=== PATIENT | female | born 2005 | race Caucasian/White ===

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

== ENCOUNTER 2024-03-28 08:07 | Day surgery (SDC) | payer OTHER, SELFPAY ==
[2024-03-28] VITALS (12 sets, daily range): BP systolic 107–128; BP diastolic 65–83; PULSE 57–83; RESP 6–20; TEMP 36.6–36.8; O2SAT 97–100; BMI 23.6
[2024-03-28] MEDS: LACTATED RINGERS 1000 ML 1,000 ML 100 ML IV ×2 (08:30→10:35)
[2024-03-28] MEDS: OXYMETAZOLINE 0.05% NASAL SPRAY 2 SPRAY NOSTRIL-B (08:30)
[2024-03-28 08:32] LABS: Ur HCG Qualitative* Negative (Negative)
[2024-03-28] MEDS: SODIUM CHLORIDE 0.9 % (FLUSH) 10 ML SYRINGE IVF (08:41)
[2024-03-28] MEDS: BUPIVACAINE 0.5%/EPINEPHRINE 0.9 MG (30.9 ML) INJECTION (10:00)
[2024-03-28] MEDS: COCAINE HCL 4 % 4 ML SOLUTION NOSTRIL-B (10:05)
[2024-03-28] MEDS: MUPIROCIN 1 GM PACKET 1 APPLIC TOPICAL (10:05)
--- NOTE | 2024-03-28 10:14 | W.ANESCHARGE ---
Anesthesia Charges Start Date/Time Anesthesia Start Date: 03/28/24 Anesthesia Start Time: 09:45 Stop Date/Time Anesthesia Stop Date: 03/28/24 Anesthesia Stop Time: 10:19
--- NOTE | 2024-03-28 10:42 | W.ANESCHARGE ---
Anesthesia Charges Start Date/Time Anesthesia Start Date: 03/28/24 Anesthesia Start Time: 09:45 Stop Date/Time Anesthesia Stop Date: 03/28/24 Anesthesia Stop Time: 10:19
--- NOTE | 2024-03-28 11:23 | W.PM.ENTPROC ---
Procedure Note Date of procedure: 03/28/24 Procedure: Preoperative diagnosis status post nasal septoplasty with rightward shift of anterior septum and right nasal obstruction Postoperative diagnosis same Procedure revision nasal septoplasty Under general trach anesthesia patient was prepped draped usual fashion. The nose was decongested and then the anterior septum injected. The caudal end of the septum had deflected into the right nostril. Incision was made overlying the deflected portion and mucosa elevated backwards about 2 mm on either side. The thickened portion of right cartilage was shaved off with a 15 blade. The incision was closed with 2 4-0 chromic sutures and a cotton ball placed. The patient procedure well was taken recovery in satisfactory condition. Blood loss was less than 10 mL. Surgeon: Milton Benjamin MD
== END 2024-03-28 12:06 | disposition home or self-care (01) ==
PROVIDERS: PCP Physician Assistant; Visit Provider Otolaryngology
PROC: (CPT 30520; principal; 2024-03-28 09:30)
DX: J34.2 Deviated nasal septum (principal); J34.89 Other specified disorders of nose and nasal sinuses
CPT/HCPCS: 30520; 00160; 81025; A9270; J0330; J1100; J2250; J2405; J2704; J3010; J7120

== ENCOUNTER 2025-02-13 19:44 | Emergency (ER) | payer OTHER, SELFPAY ==
[2025-02-13 19:59] VITALS: BP 131/82; PULSE 84; RESP 16; TEMP 36.8; O2SAT 97; BMI 22.7
[2025-02-13] MEDS: LIDOCAINE/EPINEP/TETRACAINE 3 ML GEL..ML. TOPICAL (20:45)
--- NOTE | 2025-02-13 20:53 | ED.WOUNDLAC ---
HPI - Wound/Laceration General Date Seen: 02/13/25 Chief Complaint: Laceration/Wound Stated Complaint: Lac L thumb Time Seen by Provider: 02/13/25 20:42 Source: patient Mode of arrival: ambulatory Limitations: no limitations History of Present Illness HPI narrative: Patient is a 19-year-old female presenting to emergency department for laceration to her left thumb. States she was using a kitchen knife about 2 hours ago when it slipped and cut her finger. Laceration is on the palmar aspect near the interphalangeal joint. No other injuries noted. Has full range of motion of her thumb. Last tetanus shot was in 2014 Related Data Home Medications ?Medication ?Instructions ?Recorded ?Confirmed multivitamin 1 tab PO QAM 10/07/23 02/13/25 Allergies Allergy/AdvReac Type Severity Reaction Status Date / Time No Known Drug Allergies Allergy Verified 02/13/25 19:59 [facility] Surgical History (Updated 03/26/24 @ 07:16 by Amanda Yoder RN) Hx of wisdom tooth extraction ?K08.409 - Partial loss of teeth, unspecified cause, unspecified class (ICD-10) History of tonsillectomy and adenoidectomy ?Z90.89 - Acquired absence of other organs (ICD-10) Hx of nasal septoplasty ?Z98.890 - Other specified postprocedural states (ICD-10) Hx of cholecystectomy ?Z90.49 - Acquired absence of other specified parts of digestive tract (ICD-10) Social History Smoking Status: Current some day smoker Do you use any of these nicotine containing products: Vaping Products Smokeless tobacco user details: VAPING- MOST DAYS How often do you have a drink containing alcohol: monthly or less AUDIT-C Alcohol total score: 1 Non-prescribed substance use: denies use Caffeine: Yes Are you using contraception or practicing any form of control: Yes Exam Narrative: Exam Narrative: Const: Well-nourished, Well-developed, in mild distress Eyes: PERRL, no conjunctival injection, and symmetrical lids HENT: Atraumatic external nose and ears. Moist mucous membranes. MSK:Extremities w/o deformity, Normal Active ROM Skin: Warm, Dry. 1 cm laceration to the lower aspect of the left interphalangeal joint Neuro: Normal Muscle tone, No focal neurological deficits. Psych: Awake, Alert, & Oriented x3. Appropriate mood and affect. Const: Vital Signs, click to edit/add: Vital Signs - 24 hr 02/13/25 19:59 Temperature 98.2 F Pulse Rate [Pulse Oximeter] 84 Respiratory Rate 16 Blood Pressure [Ri ght Upper Arm] 131/82 Pulse Oximetry 97 Oxygen Delivery Me thod Room Air Course Vital Signs Vital signs: Initial Vital Signs Temperature 98.2 F 02/13/25 19:59 Temperature Source Temporal Artery Scan 02/13/25 19:59 Pulse Rate 84 02/13/25 19:59 Pulse Rhythm Regular 02/13/25 19:59 Respiratory Rate 16 02/13/25 19:59 Blood Pressure 131/82 02/13/25 19:59 Blood Pressure Mean 98 02/13/25 19:59 Blood Pressure Position Sitting 02/13/25 19:59 Pulse Oximetry 97 02/13/25 19:59 Oxygen Delivery Method Room Air 02/13/25 19:59 Vital Signs Temperature 98.2 F 02/13/25 19:59 Pulse Rate 84 02/13/25 19:59 Respiratory Rate 16 02/13/25 19:59 Blood Pressure 131/82 02/13/25 19:59 Pulse Oximetry 97 02/13/25 19:59 Oxygen Delivery Method Room Air 02/13/25 19:59 Temperature 98.2 F 02/13/25 19:59 Pulse Rate 84 02/13/25 19:59 Respiratory Rate 16 02/13/25 19:59 Blood Pressure 131/82 02/13/25 19:59 Pulse Oximetry 97 02/13/25 19:59 Oxygen Delivery Method Room Air 02/13/25 19:59 Medications Administered Medications: Discontinued Medications Generic Name Dose Route Start Last Admin Trade Name Freq PRN Reason Stop Dose Admin Diphtheria/Tetanus/Acell Pertussis 0.5 ml 02/13/25 20:56 02/13/25 21:11 Tetanus/Diphth/Pertussis 0.5 Ml Syringe IM 02/13/25 20:57 Not Given .ONCE ONE Lidocaine/Epinephrine/Tetracaine 3 ml 02/13/25 20:42 02/13/25 20:45 Lidocaine/Epinep/Tetracaine 3 Ml Gel..Ml. TOPICAL 02/13/25 20:43 3 ml ONCE ONE Administration MDM - Wound/Laceration MDM Narrative Medical decision making narrative: Patient is a 19-year-old female presenting for laceration to her left thumb. She has full range of motion of the thumb. No signs of deep tendon injuries. She tolerated laceration repair. She states she will follow-up with her primary care provider next week for her annual physical and get her tetanus shot then. Antibiotics not necessary at this time and she will be discharged Discharge Plan Discharge Clinical Impression: Laceration Patient Disposition: Home, Self-Care Condition: Stable Instructions: Finger Laceration (ED) Additional Instructions: Follow-up with your primary care provider or urgent care in the next 7 days to have the four sutures removed. For next 6 months, once sutures are removed, whenever you go outside put a dab of sunscreen over the laceration site to improve scar appearance. Topical antibiotics are not necessary at this time but can be used. Patient can shower but do not submerge the laceration until sutures are removed Prescriptions: No Action multivitamin Tablet 1 tab PO QAM Follow Up/Referrals: Guillermina Alexandre PA-C [Primary Care Provider, Family Practice] Stand Alone Forms: [facility] Info Instructions Procedures Laceration Left thumb: Name of person performing procedure: Petr Castillo Site: hand Side (If applicable): left Size (cm): 1 Description: linear and clean Depth: simple, single layer Pre-repair: wound explored, irrigated extensively and deep structures intact Skin layer closed with: nylon Size (cm): 5-0 Number of sutures: 4 Technique: simple, interrupted
--- OUTSIDE RECORDS SUMMARY | 2025-02-13 21:25 | XMS_ITS | Clinical Summary ---
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 multivitamin (MVI) tablet Take 1 Tablet by mouth once daily. 0 03/31/2021 Active levonorgestrel (MIRENA) 20 mcg/24 hours (8 yrs) 52 mg intrauterine device (IUD) Placed 10/10/23 1 Each 03/20/2024 Active Active Problems Problem Noted Date Diagnosed Date Menorrhagia with irregular cycle 03/26/2019 ALLERGIC RHINITIS Resolved Problems Problem Noted Date Diagnosed Date Resolved Date Chronic cholecystitis 12/19/20182019 Recurrent biliary colic 12/04/2018 04/09/2019 Biliary colic 12/04/2018 12/12/2019 Abdominal pain 11/14/2018 12/12/2019 Wheezing 09/09/2012 12/12/2019 Unspecified constipation 05/26/2007 Immunizations Immunization Administration Dates Next Due AMB Influenza, IIV3 (Age >=3 years)(Flu Clinic Only) 06/12/2011,07/29/2009 COVID-19 vaccine ([employer] 30mcg/0.3mL) PF, MDV 01/08/2021,12/18/2020 DTP 07/23/2005 [id number] (Pediarix) 2004,2004,1 08/22/2003 DTaP-IPV (Kinrix) 04/22/2009 HIB PRP-OMP (PedvaxHIB) 07/23/2005,2004, HPV 9 (Gardasil 9) 10/11/2016,06/08/2016, 016 Hepatitis A (Peds) 03/24/2016,05/02/2015 Hepatitis B (Peds) 2004 Influenza, IIV3 (Age 6-35 mos) 06/12/2011,2008 Influenza, IIV3 (Age >=3 years) 06/30/20 12,06/22/2007,08/13/2005,07/23 Influenza, IIV4 05/26/2020,,07/02/2017,05/28,05/02/2015,06/05/2014 MENINGOCOCCAL VACCINE 2 VIAL [id number] (MENVEO) 03/31/2021,05/02/2015 MMR 04/22/2009,04/19/2005 Pneumococcal conj 7-Valent (Prevnar 7) 1 2004,2004,2004,06/22,2004 [...] 1 09/30/2023 Social Connections Answer Date Recorded Do you often feel lonely or isolated from those around you? 0 03/20/2024 Financial Resource Strain Answer Date R ecorded Difficulty of Paying Living Expenses 3 03/20/2024 Difficulty of Paying Living Expenses Not on file 03/20/2024 Food Insecurity Answer Date Recorded Do you worry your food will run out before you are able to buy more? 1 03/20/2024 Transportation Needs Answer Date Record ed Does lack of transportation keep you from medica l appointments? 1 03/20/2024 Does lack of transportation keep you from work, meetings or getting things that you need? 1 03/20/2024 Housing Stability Answer Date Recorded What is your housing situation today? 1 03/20/2024 Utilities Answer Date Recorded Do you have trouble paying f or utilities (for example, heat, electricity, water, phone)? 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 Gender Identity Not on file Sexual Orientation Not on file Obstetrics History Para Term AB IAB SAB Ectopic Multiple Livin g Live Births 1 0 0 0 1 0 1 0 0 0 Date Outcome GA Total Labor Labor/2nd/3rd Weight Sex Type Anes PTL Fariha A1 A5 Name Clin SAB Last Filed Vital Signs Vital Sign Reading Time Taken Comments Blood Pressure 109/72 03/20/2024 7:47 AM CDT Pulse 59 03/20/2024 7:47 AM CDT Temperature 37.1 C (98.7 F) 05/09/2023 5:22 PM CDT Respiratory Rate 16 05/09/2023 5:22 PM CDT Oxygen Saturation 100% 03/20/2024 7:47 AM CDT Inhaled Oxygen Concentration - - Weight 68.4 kg (150 lb 12.8 oz) 03/20/2024 7:47 AM CDT Height 168.5 cm (5' 6.34) 03/31/2021 [...] 18-79 2022 COVID-19 vaccine series ( season) 2024 08/11/2021, 01/08/2021, 12/18/2020 Depression screening for age 12+ 10/04/2024 10/04/2023, 10/03/2023, 09/30/2023, Additional history exists Influenza Vaccine (Season Ended) 2025 05/26/2020, 07/31/2019, 07/02/2017, Additional history exists Tetanus booster 05/02/2025 05/02/2015 Hepatitis B series for 19+ Completed 10/30, 2004, 2004, Additional history exists Pneumococcal series for age 6-49 Aged Out 07/23/2005, 2004, 2004, Additional history exists No longer eligible based on patient's age to complete this topic Tdap Completed 05/02/2015 HPV series for age 9-26 Completed 10/11/19 17, 06/08/2016, 03/24/2016 Meningococcal series for age 11-21 Completed 03/31/2021, 05/02/2015 [id number] [facility] [place] [address] [facility] [employer] OF [place] [facility] [phone] [place] [address] Advance Directives * Full Code (Latest Code Status on File) Date Activated Date Inactivated Comments 12/13/2018 6:42 AM 12/13/2018 4:48 PM Question Answer Comments Code Status Discussion: Discussed * Full Code Date Activated Date Inactivated Comments 11/14/2018 1:55 PM 11/14/2018 7:31 PM Question Answer Comments Code Status Discussion: Discussed
[2025-02-13 21:29] VITALS: BP 124/74; PULSE 79; RESP 16; TEMP 36.8; O2SAT 97
[2025-02-13 21:32] VITALS: BP 124/74; PULSE 79; RESP 16; TEMP 36.8
== END 2025-02-13 21:32 | disposition home or self-care (01) ==
PROVIDERS: Emergency Provider Student in an Organized Health Care Education/Training Program; PCP Physician Assistant
DX: S61.012A Laceration without foreign body of left thumb without damage to nail, initial encounter (principal); W26.0XXA Contact with knife, initial encounter
CPT/HCPCS: 12001; 99283

== ENCOUNTER 2025-07-02 10:22 | Outpatient (CLI) | payer OTHER, SELFPAY ==
[2025-07-02 15:30] LABS: Chlamydia DNA Amplified* NOT DETECTED (No Detected); GC DNA Amplified* NOT DETECTED (No Detected)
[2025-07-06 13:59] LABS: HPV Source Cervix
== END 2025-07-02 10:23 | disposition home or self-care (01) ==
PROVIDERS: PCP Family Medicine; Visit Provider Family Medicine
DX: Z12.4 Encounter for screening for malignant neoplasm of cervix (principal); Z11.3 Encounter for screening for infections with a predominantly sexual mode of transmission; R53.83 Other fatigue
CPT/HCPCS: 80048; 84443; 85025; 87086; 87491; 87591; 87624; 87625; 88141; 88142; 88175

== ENCOUNTER 2025-07-04 09:46 | Outpatient (CLI) | payer OTHER, SELFPAY ==
[2025-07-05 14:58] LABS: Pap Test Digital Imaging Done
== END 2025-07-04 09:47 | disposition home or self-care (01) ==
LOC: NFLDREF 09:47
PROVIDERS: PCP Family Medicine; Visit Provider Family Medicine
DX: Z12.4 Encounter for screening for malignant neoplasm of cervix (principal)
CPT/HCPCS: 88141; 88142; 88175